=== PATIENT | female | born 1935 | race Caucasian/White ===

== ENCOUNTER 2018-04-27 17:21 | Inpatient (IN) | payer MEDICARE ==
[~2018-04-27] VITALS: Ht 167.6 cm; Wt 71.5 kg
[~2018-04-27 17:21] MED LIST: ACIDOPHILUS 17175 MG PO; ALDACTONE50 MG PO; ASPIRIN EC81 MG PO; BISOPROLOL FUMAR5 MG PO; CALCIUM CARB 51 EACH PO; CHEWABLE-VITE1 EAC1 PO; DEMADEX20 MG PO; FEOSOL325 MG PO; IPRAT-ALBUT 0.5-3 ML INH; ISOSORBIDE MONO60 MG PO; LIPITOR80 MG PO; NEURONTIN300 MG PO; PLAVIX75 MG PO; PROZAC20 MG PO; QVAR REDIHALE10.6 G1 INH; VITAMIN C500 M1 PO; VITAMIN D-32000 UNIT PO; ZYLOPRIM100 MG PO
[2018-04-27] MEDS ORDERED: ACIDOPHILUS 17175 MG PO (17:31)
[2018-04-27] MEDS ORDERED: BISOPROLOL FUMAR5 MG PO (17:33)
[2018-04-27] MEDS ORDERED: IPRATROPIU0.2 MG/1 M INH (17:34)
[2018-04-27] MEDS ORDERED: MIRTAZAPINE15 MG PO (17:35)
--- NOTE | 2018-04-27 18:27 | EKG ---
[facility] [address] 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
--- NOTE | 2018-04-27 21:00 | NUR ---
PT ARRIVES TO FLOOR FROM ER ON [facility] WITH 2 PERSON ASSIST TO HOSPITAL BED. PT ALERT AND ORIENTED TO PERSON AND PLACE. ASSESSMENT PERFORMED AND PT GIVEN FRESH ICE WATER. CALL LIGHT IN REACH AND NO NEEDS VOICED. PT DENIES HAVING PAIN OR SOB AT THIS TIME.
--- NOTE | 2018-04-27 21:33 | NUR ---
JOSE, RN NOTIFIED DR FOX OF CRITICAL LAB VAULE: CALCIUM. NO NEW ORDERS; CONTACTED [facility] STAFF FOR MORE INFOR RELATED TO PT. PT USES CPAP MACHINE FOR SLEEP APNEA, GENERALLY AMBULATES WITH FWW, FELL LAST NIGHT USING THE BATHROOM, AND HASN'T WALKED TODAY, GENERALLY TOLIETS SELF, FEEDS SELF, MOVED INTO [facility] END OF FEBRUARY, FIRST OF MARCH PER "LARRY", STAFF MEMBER AT [facility]. EDUCATED PT ABOUT THE CALL LIGHT, PT HAD NO NEEDS, AND WAS MOSTLY SLEEPY UPON ADMISSION AT 2026
--- NOTE | 2018-04-27 23:01 | NUR ---
PT ASSISTED UP TO BSC WITH 2PERSON ASSIST. PT ASSITED BACK IN TO BED AND PT ASSISTED INTO POSITION OF COMFORT. CALL LIGHT NAD H20 IN REACH.
--- NOTE | 2018-04-28 00:44 | NUR ---
PT RESTING SUPINE, RESPIRATIONS UNLABORED AT 18. CALL LIGHT AND H20 IN REACH. PT APPEARS TO BE SLEEPING COMFORTABLY.
--- NOTE | 2018-04-28 03:46 | NUR ---
pt resting supine in bed, [id number], pt appears to be sleeping comfortably. light/h20 in reach.
--- NOTE | 2018-04-28 05:04 | NUR ---
PT WAS ADMITTED TO MED/SURG FROM THE ER FOR ABNORMAL LAB VALUES AND WEAKNESS THAT CAME TO LIGHT AT HER APPOINTMENT WITH HER SUPPLY COORDINATOR. PT IS CURRENTLY A RESIDENT AT [facility]. PT IS ALERT TO PERSON AND PLACE THOUGH SUFFERS FROM [place]. PER STAFF AT [facility] PT WAS AMBULATING AT FACILITY WITH 2PA AND USE OF A FWW. HERE PT WAS ABLE TO PIVOT FROM [facility] TO BSC WITH A 2PA. PT HAS GENERALIZED WEAKNESS AND HAS HAD AN ELEVATED CALCIUM OF 13.6 AT 1750 AND HAS COME DOWN TO 12.7 AT 2159, SODIUM ALSO LOW AT 126. PT RECEIVED BOLUS' AND IS CURRENTLY RECEIVEING CONTINOUS LR MAINTENANCE FLUIDS TO 20GA IV TO LEFT HAND. PT ON REGULAR DIET AND HAS BEEN VOIDING QS CLEAR YELLOW URINE.
--- NOTE | 2018-04-28 09:34 | NUR ---
PT UP IN BED EATING BREAKFAST, NO DISTRESS, SATS STABLE, PT COMPLAINS OF MINIMAL SOB, LUNGS RHONCOROUS TO POSTERIOR LUNG PRECIADO, NOTIFIED PROVDIER, ADVISED TO D/C MAINTENANCE FLUIDS, SALINE LOCKED. PT HAD A BREATHING TREATMENT IS WORKING WITH PT. PT ABLE TO SWALLOW PILLS WITHOUT DIFFICULTY. WILL CONTINUE TO MONITOR.
--- NOTE | 2018-04-28 13:56 | NUR ---
PATIENT UP TO BSC 2 PERSON ASSIST. PATIENT BACK TO CHAIR 2 PERSON ASSIST. FAMILY BEDSIDE. CALL LIGHT IN REACH. NO FURTHER NEEDS AT THIS TIME.
--- NOTE | 2018-04-28 14:09 | NUR ---
PT APPEARS TO BE ALERT, ORIENTED AND SUPPORTED BY HER SISTER AND DAUGHTER VARINDER. PT STATED THAT SHE IS FEELING MUCH BETTER THAN LAST NIGHT. PLEASANT VISIT, PT REQUESTED PRAYER, WILL FOLLOW NEEDED
--- NOTE | 2018-04-28 16:13 | NUR ---
ORDER RECEIVED FOR WOUND CONSULT. PATIENT IS NOTED TO HAVE NON-ADHERENT DRESSING SECURED WITH COBAN ON FOREARMS, BILATERALLY. PATIENT'S SISTER REPORTS SHE FELL AT HOME WITH RESULTANT SKIN TEARS. SKIN TEARS APPEAR MOSTLY SCABBED AND DRY. GENTLY CLEANED W/WOUND CLEANSER AND GAUZE AND MEDIHONEY HYDROGEL COLLOIDAL DRESSING IS APPLIED TO ALL 3 WOUNDS (2 ON RIGHT ARM AND 1 ON LEFT ARM). LEFT GLUTEUS WOUND IS NOTED TO HAVE A 3 X [address] W/SMALL AMOUNT OF BLOODY DRAINAGE NOTED TO DRESSING. DRESSING IS CAREFULLY REMOVED AND A SKIN TEAR IS NOTED UNDER THE DRESSING MEDIAL AND SUPERIOR TO THE STAGE II PRESSURE ULCER. THE SKIN TEAR APPEARS BRIGHT RED. THE PRESSURE ULCER APPEARS PINK. DRESSING CHANGE DONE IN ACCORDANCE W/ORDER AND PATIENT TOLERATES THAT WELL. NEXT DRESSING CHANGE DUE TUESDAY 05/01. RIGHT GLUTEUS NON-BLANCHABLE, STAGE I PRESSURE AREA IS NOTED TO BE 4 CM LONG X 3 CM WIDE. NO DRESSING IS APPLIED TO THIS AREA @ THIS TIME; HOWEVER, PRESSURE RELIEF IS RECOMMENDED TO PREVENT FURTHER BREAKDOWN. PATIENT AND HER SISTER VERBALIZE UNDERSTANDING OF WOUND PLAN OF CARE. VERBAL REPORT GIVEN TO ALLEGRA PRUITT AND HER QUESTIONS ARE ANSWERED.
[2018-04-28] MEDS ORDERED: TYLENOL EXTRA500 MG PO (17:50)
[2018-04-28] MEDS ORDERED: ALAWAY10 ML OPTH (17:51)
[2018-04-28] MEDS ORDERED: COLACE100 MG PO (17:53)
[2018-04-28] MEDS ORDERED: BISACODYL5 MG PO (17:53)
[2018-04-28] MEDS ORDERED: ZOFRAN4 MG PO (17:54)
[2018-04-28] MEDS ORDERED: ENEMA READY TO133 ML PR (17:56)
[2018-04-28] MEDS ORDERED: VENTOLIN HFA18 GM INH (17:56)
--- NOTE | 2018-04-28 17:57 | NUR ---
MED REC COMPLETE
--- NOTE | 2018-04-28 18:34 | NUR ---
PT UP TO CHAIR AND RETURNED TO BED FOR ASSESSMENT, PILLOWS PLACED FOR COMFORT AND TO RELIEVE PRESSURE ULCER. PT HAS BILATERAL CRACKLES TO BASES, SATS STABLE. PT HAS NO DISTRESS AND IS RESTING COMFORTABLY, SISTER AT BEDSIDE. DRESSINGS APPLIED BY WOUND RN WITH THIS RN ASSISTING.
--- NOTE | 2018-04-28 18:35 | NUR ---
PT RESTING AT BEDSIDE, NO CHANGES IN CONDITION. TOLERATED DIET TODAY. SALINE LOCKED SINCE THIS AM DUE TO PROVIDER ORDER. WILL CONTINUE TO MONITOR.
--- NOTE | 2018-04-28 19:30 | NUR ---
PATIENT UP WITH 2 PERSON ASSIST TO THE BEDSIDE COMMODE AND AND VOIDED 350MLS.
--- NOTE | 2018-04-28 20:00 | NUR ---
PATIENT UP AGAIN WITH 2 PERSON ASSIST AND WALKER TO THE RECLINER AND WANTS TO SIT UP IN THE RECLINER FOR AWHILE. LEFT HAND IV REINFORCED WITH TAPE AND IT FLUSHES WELL WITH SALINE.
--- NOTE | 2018-04-28 20:55 | NUR ---
ROUNDED CHARGE. PATIENT IS RESTING IN RECLINER. CHAIR ALARM IN PLACE FOR SAFETY. PATIENT DENIES ANY COMMENTS, QUESTIONS, OR CONCERNS. CALL LIGHT IN REACH.
--- NOTE | 2018-04-28 22:39 | NUR ---
PATIENT CONTINUES TO SIT UP IN THE RECLINER, SHE DID NOT WANT TO GO TO BED YET. O2 SATS 94% ON ROOM AIR AND HR IS 66 ON THE TELE. RESPIRATIONS 16 AND REGULAR, EYES CLOSED AND PATIENT SEEMS TO BE RESTING COMFORTABLY.
--- NOTE | 2018-04-28 22:42 | NUR ---
V/S AND I&O TAKEN AND CHARTED. RN JENNIFER AND I HELPED PATIENT USE THE COMMODE. PATIENT WANTS TO BE UP IN THE CAHIR. CHAIR ALARM ON. BEDSIDE TABLE AND CALL LIGHT WITHIN REACH.
--- NOTE | 2018-04-28 23:30 | NUR ---
PATIENT HAS FINALLY DECIDED TO GO TO BED AND WITH A WALKER AND 2 PERSON ASSIST PATIENT WENT TO THE BATHROOM AND THEN AMBULATED BACK AND GOT INTO BED. PATIENT RESTING AT THIS TIME RESPIRATIONS REGULAR AND EVEN. HR=66 ON TELE AND SATS 92% ON ROOM AIR.
--- NOTE | 2018-04-28 23:34 | NUR ---
ALLEGRA RODRIGUEZ AND I HELPED PATIENT FROM BATHROOM TO BED USING WALKER. SCD, BED ALARM ON. BEDSIDE TABLE AND CALL LIGHT WITHIN REACH. NO OTHER NEEDS AT THIS TIME.
--- NOTE | 2018-04-29 02:10 | NUR ---
PATIENT IS CURRENTLY RESTING QUIETLY IN THE RECLINER IN HER ROOM. SHE SEEMS TO BE MORE COMFORTABLE THERE. HR IS 70 ON TELE AND HER O2 SATS ARE 92% ON ROOM AIR.
--- NOTE | 2018-04-29 03:11 | NUR ---
PATIENT CONTINUES TO SIT IN HER RECLINER RESTING QUIETLY, SATS 95% ON ROOM AIR AND HEART RATE OF 68.
--- NOTE | 2018-04-29 06:35 | NUR ---
PATIENT HAS BEEN UP AND DOWN FROM BED TO CHAIR MOST OF THE NIGHT USING THE COMMODE IN BETWEEN. IV IS FLUSHING WELL. PATIENT HAS BOWEL TONES AND STILL HAS CRACKLES IN THE BILAT BASES. TELE STILL RUNNING AT A RATE OF 60-70'S WITH A 1 DEGREE AV BBB PER CCU.
--- NOTE | 2018-04-29 06:47 | NUR ---
CALLED ABOUT HAVING TO RESCHEDULE THE PARATHYROID HORMONE PEPTIDE TEST FOR 1000 AM TODAY SINCE THAT IS WHEN WE ARE ABLE TO GET THE TUBES FROM THE WAREHOUSE COULD GET HERE. SAID THAT WOULD BE FINE.
--- NOTE | 2018-04-29 08:00 | NUR ---
WALKED WITH PATIENT FROM BATHROOM TO HER CHAIR AND SET HER UP TO EAT HER BREAKFAST.
--- NOTE | 2018-04-29 08:11 | NUR ---
PT ASSISTED BACK TO HER CHAIR AT THIS TIME FOR BREAKFAST FROM THE BATHROOM WHERE SHE HAD A LARGE, FORMED BM. PT HAS NO PAIN, IS A/O X4, PLEASANT , CALM AND COOPERATIVE. MEDS AND ASSESSMENT COMPLETE. CHAIR ALARM ON, FALL PRECAUTIONS IN PLACE. CALL LIGHT AND BELONGINGS WITHIN REACH. WILL CONTINUE TO MONITOR.
--- NOTE | 2018-04-29 09:32 | NUR ---
PT SITTING UP IN CHAIR COMFORTABLY WITH NO C/O PAIN. NO QUESTIONS OR CONCERNS. APPEARS COMFORTABLE. CALL LIGHT AND BELONGINGS WITHIN REACH. CHAIR ALARM ON AND FALL PRECAUTIONS IN PLACE. WILL CONTINUE TO MONITOR.
--- NOTE | 2018-04-29 11:15 | NUR ---
PT BACK IN CHAIR AT THIS TIME AFTER WORKING WITH PT, WELL THIS RN ASSISTING PT TO AND FROM TOILET AFTER HER THERAPY SESSION. PT HAD X1 URRINE OCCURRENCE (MISSED THE HAT). I PLACED A NEW DRG ON OPEN SORE ON BOTTOM SINCE PREVIOUS ONE WAS FALLING OFF; DATED AND TIMED THE DRG; CHANGE PRN OR Q3 DAYS. PT BACK IN CHAIR WITH CHAIR ALARM ON AND DAUGHTER AT HER SIDE. PT HAS NO C/O PAIN BUT STATES THAT SHE "FEELS WEAK AND TIRED" TODAY. PT HAS AMBULATED NUMEROUS TIMES THIS MORNING IN HER ROOM TO AND FROM CHAIR/TOILET, WELL WALKING WITH PT. EDUCATION PROVIDED ON ACTIVITY. PT REQUESTS TIME TO REST. FALL PRECAUTIONS IN PLACE. CALL LIGHT AND BELONGINGS WITHIN REACH; WILL CONTINUE TO MONITOR.
--- NOTE | 2018-04-29 13:03 | NUR ---
PT SITTING IN CHAIR EATING LUNCH. PT MENTIONED THAT TODAY HAS NOT BEEN THE BEST OF DAYS. FAMILY MENTIONED THAT SHE ATE HALF OF HER TUNA SANDWICH AND SOME OF HER SOUP THOUGH. PT STATED THAT SHE DID'T HAVE MUCH OF AN APPETITE. PT ALSO STATED THAT SHE DIDN'T SLEEP WELL, BUT HAS NO PAIN. PT REQUESTED PRAYER, WILL FOLLOW NEEDED
--- NOTE | 2018-04-29 13:30 | NUR ---
PT STILL SITTING UP IN CHAIR WITH 2 VISITORS IN THE ROOM. NO C/O PAIN OR ANY REQUESTS/CONCERNS. STATES THAT SHE STILL JUST FEELS TIRED. EDUCATION GIVEN ON IMPORTANCE OF REPOSITIONING, EVEN WHEN SITTING UP IN HER CHAIR. CALL LIGHT AND BELONGINGS WITHIN REACH. CHAIR ALARM ON/FALL PRECAUTIONS IN PLACE. WILL CONTINUE TO MONITOR.
--- NOTE | 2018-04-29 14:50 | NUR ---
PT ASSISTED BACK AT BED AFTER HAVING X1 URINE OCCURRENCE IN TOILET; PT HAS FALLEN ASLEEP AND IS NAPPING COMFORTABLY WITH 2 FAMILY MEMBERS AT BEDSIDE; SHE HAD NO C/O PAIN, IS A/O X4. NO QUESTIONS OR CONCERNS. ASSESSMENT COMPLETED. CALL LIGHT AND BELONGINGS WITHIN REACH. BED ALARM ON AND FALL PREVENTION PRECAUTIONS IN PLACE. SCD PUT ON. WILL CONTINUE TO MONITOR.
--- NOTE | 2018-04-29 18:18 | NUR ---
PT VS AND CONDITION STABLE TODAY ON 04/29/18 DAY SHIFT. PT PLEASANT, CALM AND COOPERATIVE WITH NO C/O PAIN, NO N/V, NO CONFUSION. PT STATED THIS AM THAT SHE FEELS WORSE TODAY COMPARED TO YESTERDAY, THAT SHE FEELS "MORE TIRED AND MORE WEAK." PT HAD VERY LARGE BM THIS MORNING, AND ADEQUATE URINE OUTPUT THROUGHOUT THE SHIFT. FREQUENT REPOSITIONING FOR PT'S BOTTOM COMPLETED THROUGHOUT SHIFT; PT NEEDS REINFORCEMENT BECAUSE SHE TENDS TO KEEP GOING BACK TO SUPINE POSITION. DRG ON BUTTOCKS CHANGED TODAY AND REMAINS C/D/I AT THIS TIME. PT HAS NO CURRENT QUESTIONS OR CONCERNS AT THIS TIME. EDUCATION COMPLETED THROUGHOUT SHIFT. CALL LIGHT AND BELONGINGS WITHIN REACH, UP IN CHAIR AT THIS TIME WITH CHAIR ALARM ON. WILL CONTINUE TO MONITOR.
--- NOTE | 2018-04-29 19:31 | NUR ---
PATIENT REFUSED SHOWER TODAY.
--- NOTE | 2018-04-29 19:40 | NUR ---
CHARGE NURSE ROUNDING NOTE: IN CHAIR, C/O ABD DISTRESS, RT IN ROOM, PT GETTING NEBS.PRIMARY RN IN ROOM
--- NOTE | 2018-04-29 19:58 | NUR ---
PATIENT C/O 05/17 GENERAL BODY AHES. PATIENT HAS NO FEVER, 97.2F TEMPORAL. PATIENT JUST FINISHED A BREATHNG TREATMENT. EXPIRATORY WHEEZES IN THE BILATRAL BASES WITH SCATTERED BILATERAL FINE CRACKLES. PATIENT UPPER LUNG SOUNDS DEMINISHED BUT CLEAR. BOWEL TONES X4 ACTIVE. 650MG PO TYLEOL GIVEN, ALONG WITH REMERON AND HER OTHER EVENING MEDS WHICH SHE TOOK JUST FINE.
--- NOTE | 2018-04-29 22:00 | NUR ---
WAS CONTACTED PATIENT'S PAIN HAS NOT HAD ANY RELIEF FROM REMERON OR TYLENOL AND 5MG OXCODONE WAS GIVEN PO. PATIENT SATS ARE STILL IN THE 90'S AND PULSES IN THE 80'S.
--- NOTE | 2018-04-30 | NUR ---
PATIENT HAS BEEN SLEEPING SINCE HER OXYCODONE WAS GIVEN AND SEEMS TO BE FAIRLY COMFORTABLE. O2 SATS, RESPIRATIONS, AND PULSE ARE WITHIN NORMAL LIMITS.
--- NOTE | 2018-04-30 00:28 | NUR ---
HELPED PT TO THE BATHROOM AND BACK TO BED WITH HER FWW AND RN JENNIFER'S HELP. CHANGED ATTEND SATURATED WITH URINE. SCD'S AND BED ALARM ON. FRESH WATER GIVEN. BEDSIDE TABLE AND CALL LIGHT IN REACH.
--- NOTE | 2018-04-30 00:56 | NUR ---
PATIENT HAS BEEN UP TO THE RESTROOM WITH [employer] LEASING INFORMATION CLERK,BUT IS BACK TO SLEEP AGAIN AN SEEMS COMFORTABLE, WITH PULSE, SATS, AND RESPIRATIONS REGULAR AND EVEN WITH EYES CLOSED.
--- NOTE | 2018-04-30 02:56 | NUR ---
PATIENT CONTINUES TO SLEEP QUIETLY, EYES CLOSED, RESPIRATIONS EVEN AND REGULAR, O2 SATS 92%, RESPIRATIONS 18, HR=80 ON TELE.
--- NOTE | 2018-04-30 05:38 | NUR ---
VITALS AND I&OS DONE AND CHARTED. DAILY WEIGHT DONE AND CHARTED WELL. HELPED PT TO THE BATHROOM AND BACK TO THE CHAIR WITH HER FWW AND RN JENNIFER. BEDSIDE TABLE AND CALL LIGHT WITHIN REACH. PT NEEDS NOTHING ELSE AT THSI TIME.
--- NOTE | 2018-04-30 08:40 | NUR ---
PT PLEASANT, CALM AND COOPERATIVE THIS MORNING SHE SITS UP IN HER CHAIR EATING BREAKFAST. PT HAS NO C/O PAIN. PT A/O TO PERSON AND TIME BUT DISORIENTED TO PLACE AND SITUATION. PT REQUIRES REORIENTATION AND REMINDERS ON SAFETY, FALL PREVENTION AND PLAN OF CARE. LUNG SOUNDS HAVE GREATLY IMPROVED SINCE YESTERDAY MORNING. DIMINISHED CRACKLES IN BILATERAL BASES BUT CLEAR IN BILTERAL UPPER LOBES. PT HAS NO QUESTIONS OR CONCERNS AT THIS TIME. MEDS GIVEN AND ASSESSMENT COMPLETED. EDUCATION COMPLETED WITH PT. CHAIR ALARM ON, FALL PRECAUTIONS IN PLACE, CALL LIGHT AND BELONGINGS WITHIN REACH. WILL CONTINUE TO MONITOR.
--- NOTE | 2018-04-30 10:30 | NUR ---
OCCUPATIONAL THERAPY GAVE PATIENT A SHOWER. THAN AFTER SHOWER PATIENT WANTED TO GO BACK TO BED.
--- NOTE | 2018-04-30 10:40 | NUR ---
WATCHED PT SHE AMBULATED BACK TO HER BED FROM THE SHOWER WITH OT. PT STILL CONFUSED AND FORGETFUL BUT SHE IS COMPLIANT AND COOPERATIVE. WALKER USED. PT STILL WEAK ON HER FEET BUT ABLE TO AMBULATE TO BED. SHE IS NOW IN BED WITH BED ALARM AND FALL PRECAUTIONS IN PLACE. NO C/O PAIN. CALL LIGHT AND BELONGINGS WITHIN REACH. WILL CONTINUE TO MONITOR.
--- NOTE | 2018-04-30 12:10 | NUR ---
THIS RN ASSISTED PT TO BATHROOM WITH X1 ASSIST AND WALKER FROM HER BED WHERE SHE WAS NAPPING COMFORTABLY. NO C/O PAIN AT THIS TIME. URINATED 200 CC. ASSISTED PT TO CHAIR FROM BATHROOM WHERE SHE IS CURRENTLY SITTING COMFORTABLY EATING LUNCH. CHAIR ALARM ON AND FALL PRECAUTIONS IN PLACE. CALL LIGHT WITHIN REACH. WILL CONTINUE TO MONITOR.
--- NOTE | 2018-04-30 13:15 | NUR ---
PATIENT RESTING IN CHAIR. PATIENT STATING DOING WELL. ONE TIME DOSE OF LASIX GIVEN.
--- NOTE | 2018-04-30 14:50 | NUR ---
PT RESTING IN CHAIR WITH NO C/O PAIN; PILLOW SUPPORT ON HER BOTTOM AT THIS TIME SINCE SHE WAS REFUSING USE OF THE DONUT FOR HER COCCYX. STILL FORGETFUL BUT REORIENTS EASILY. CHANGED DRESSING ON RIGHT ARM SKIN TEARS WITH NO COMPLICATIONS. NO CURRENT QUESTIONS OR CONCERNS. CHAIR ALARM IN PLACE. CALL LIGHT WITHIN REACH. FALL PRECAUTIONS IN PLACE. WILL CONTINUE TO MONITOR.
--- NOTE | 2018-04-30 14:59 | NUR ---
PATIENT WAS UP IN HER CHAIR FOR LUNCH.
--- NOTE | 2018-04-30 18:18 | NUR ---
PT RESTING IN BED AT THIS TIME WITH DAUGHTER AT BEDSIDE. PT HAS NO C/O PAIN. SCD IN PLACE. PT HAS BEEN PLEASANT, CALM AND COOPERATIVE THROUGHOUT THE SHIFT. SHE HAS HAD NO QUESTIONS OR CONCERNS. SHE HAS BEEN MORE CONFUSED AND FORGETFUL COMPARED TO YESTERDAY WHEN I WAS HER RN. I SPOKE TO DR. MULLINS AT THIS TIME VIA TELEPHONE TO INFORM HIM THAT HER URINE IS CLOUDY AND ODOROUS AT THIS TIME, COMPARED TO YESTERDAY'S URINE WHICH WAS CLEAR AND WITHOUT ODOR. I SPOKE TO DAUGHTER IN REGARDS TO BRINGING PT'S HOME CPAP FOR PT TO USE AT NIGHT SINCE PER RT, PT REFUSED HOSPITAL'S [facility]ACH[facility] 2 NIGHTS AGO. 02 SATURATIONS ADEQUATE BUT THEY CAN BRING IF IT MAKES PT COMFORTABLE. CALL LIGHT AND BELONGINGS WITHIN REACH, BED LOCKED WITH ALARM ON AND FALL PRECAUTIONS IN PLACE. WILL CONTINUE TO MONITOR AND COLLECT URINE PER DR. MULLINS NEXT TIME SHE IS NEEDING TO VOID.
--- NOTE | 2018-04-30 20:34 | NUR ---
VITALS DONE AND CHARTED. PT WAS SLEEPING WHEN I TOOK THEM.
--- NOTE | 2018-04-30 21:09 | NUR ---
PATIENT RESTIG IN HER LEFT SIDE, BUT AYS SHE IS HAVING 7/10 ABD AND BILAT LE PAIN AND WAS GIVEN 5 MG OF OXYCODE. SCD'D ON AND PATIENT'S VS HAVE BEEN STABLE.
--- NOTE | 2018-04-30 21:21 | NUR ---
ROUNDED CHARE. PATIENT IS RESTING IN BED. PATIENT DENIES ANY COMMNENTS, QUESTIONS, OR CONCERNS AT THIS TIME. CALL LIGHT IN REACH. BED ALARM ON FOR SAFETY.
--- NOTE | 2018-04-30 21:41 | NUR ---
HELPED PT TO THE BATHROOM AND BACK TO BED WITH HER FWW. SCD'S AND HEEL PROTECTORS PUT BACK ON. BEDSIDE TABLE AND CALL LIGHT WITHIN REACH. PT NEEDS NOTHING ELSE AT THIS TIME.
--- NOTE | 2018-04-30 23:15 | NUR ---
CHECKED ON PATIENT AND SHE IS NOT FEELING ANY PAIN AT THIS TIME. SATS 93% ON RA AND PATIENT IS READY TO WEAR HER CPAP HER FAMILY BROUGHT IN SO THIS WAS PUT ON AND VERIFIED IT WAS WORKING AND PATIENT RESTING QUIETLY NOW.
--- NOTE | 2018-05-01 00:03 | NUR ---
PATIENT STILL RESTING QUIETLY ON HER RT SIDE WEARING HER CPAP, RESPIRATIONS REGULAR AND EVEN AND CALL LIGHT IN REACH.
--- NOTE | 2018-05-01 06:19 | NUR ---
PATIENT HAS SLEPT ALL NIHGT AFTER 2300. SHE HAD HER EVENING MEDS AND REQUESTED AND OXYCODONE FOR 7/10 PAIN AND THEN HAS SLEPT WITH HER CPAP ON THE REST OF THE NIGHT ECEPT FOR GETING UP TO VOID ONCE. GOING IN TO GET PATIENT'S AILY WEIGHT AND COLLECT A URINE SAMPLE FOR THE LAB. PATIENT HAVING NO PAIN AT THIS TIME, BUT DID HAVE SOME INCONTINENCE IN HER ATTENDS WHEN SHE GOT UP DURING THE NIGHT. LEFT HAND IVSTILL FLUSHES WELL.
--- NOTE | 2018-05-01 06:54 | NUR ---
VITALS AND I&OS DONE AND CHARTED. DAILY WEIGHT DONE AND CHARTED WELL. CHANGED HER GOWN DUE TO HAVING SOME URINE ON IT. ALLEGRA RODRIGUEZ COLLECTED URINE SAMPLE AND SENT OFF TO LAB. BEDSIDE TABLE AND CALL LIGHT WITHIN REACH. FRESH WATER GIVEN.
--- NOTE | 2018-05-01 08:00 | NUR ---
PT PLEASANT, CALM AND COOPERATIVE BUT APPEARS TO BE IN A SAD MOOD. SHE STATES SHE HAS NO PAIN ANYWHERE, AND WHEN ASKED WHAT'S MAKING HER FEEL SAD SHE WASN'T ABLE TO ANSWER ME, STATING "I JUST FEEL WORSE TODAY." EMOTIONAL SUPPORT GIVEN. PT UP IN CHAIR WITH NO QUESTIONS OR CONCERNS. CALL LIGHT AND BELONGINGS WITHIN REACH. ASSESSMENT COMPLETED. CHAIR ALARM AND FALL PRECAUTIONS IN PLACE. WILL CONTINUE TO MONITOR.
--- NOTE | 2018-05-01 09:31 | NUR ---
pt sittin up in chair sipping on water. pt has no complaints at this time. call light within reach.
--- NOTE | 2018-05-01 11:17 | NUR ---
pt showered with help from nicole Arrieta and nicole Lira. lotion applied to pt. pt teeth brushed by corporation lawyer. call light within reach. no further needs from pt at this time.
--- NOTE | 2018-05-01 11:20 | NUR ---
PT UP IN SHOWER WITH HELP OF 2 CNAS. I CHANGED HER DRG ON HER BUTTOCKS AT THIS TIME. DRG NOW C/D/I. THIS RN LEFT ROOM WHILE PT STILL BEING HELPED WITH PERSON INVESTIGATOR STAFF. WILL CONTINUE TO MONITOR.
--- NOTE | 2018-05-01 13:35 | NUR ---
PT ASSISTED TO BED FROM CHAIR AT THIS TIME; PT UNABLE TO RATE HER PAIN/ SAYS THAT SHE HAS NONE WHEN I ASK BUT ALL NONVERBAL CUES SHOW SHE'S HURTING. SEE PAIN ASSESSMENT IN MAR; TYLENOL GIVEN. 2 FAMILY MEMBERS AT BEDSIDE. EMOTIONAL SUPPORT GIVEN TO PT. WILL CONTINUE TO MONITOR.
--- NOTE | 2018-05-01 13:55 | NUR ---
pt is resting in [facility]. family here. pt has no needs at this time. call light within reach.
--- NOTE | 2018-05-01 14:48 | NUR ---
PT SLEEPING COMFORTABLY IN BED AT THIS TIME. FAMILY MEMBERS AT BEDSIDE SAY SHE HAS BEEN SLEEPING RESTFULLY AFTER TYLENOL DOSE. ASSESSMENT COMPLETED. NO QUESTIONS OR CONCERNS AT THIS TIME STATED BY VISITORS. BED ALARM ON, BED LOCKED IN LOWEST POSITION. CALL LIGHT AND BELONGINGS WITHIN REACH. WILL CONTINUE TO MONITOR.
--- NOTE | 2018-05-01 16:30 | NUR ---
NO C/O PAIN; PT VISITING WITH GUESTS. COMFORTABLE AND NO REQUESTS. CALL LIGHT WIHTIN REACH. WILL CONTINUE TO MONITOR.
--- NOTE | 2018-05-01 17:22 | NUR ---
pt is sitting up in chair. sister is helping her eat dinner. call light within reach. pt has no needs at this time.
--- NOTE | 2018-05-01 18:34 | NUR ---
VS AND CONDITION STABLE TODAY. CALM AND COOPERATIVE BUT DEPRESSED AND WITHDRAWN THROUGHOUT SHIFT. IV ABX STARTED AFTER CLOUDY MALODOROUS URINE SENT TO LAB THIS AM. FREQUENT VISITORS HELPED WITH PT'S DEPRESSION. DRG ON COCCYX CHANGED TODAY AFTER SHOWER AND AGAIN AFTER IT WAS ASSESSED THIS AFTERNOON BY DR. MULLINS. BM TODAY. SALINE LOCKED. UP IN CHAIR AT THIS TIME WITH ALARM ON AND VISITORS AT BEDSIDE. CALL LIGHT WITHIN REACH. WILL CONTINUE TO MONITOR.
--- NOTE | 2018-05-01 19:00 | NUR ---
SHIFT REPORT RECEIVED. PATIENT SLEEPING IN RECLINER. FAMILY IN ROOM PREPARING TO LEAVE. CHAIR ALARM ON. CALL LIGHT IN LAP.
--- NOTE | 2018-05-01 19:39 | NUR ---
HELPED PT TO THE BATHROOM AND BACK TO HER CHAIR WITH HER FWW. PUT CHAIR ALARM ON. BEDSIDE TABLE AND CALL LIGHT WITHIN REACH. TWO WARM BLANKETS GIVEN.
--- NOTE | 2018-05-01 21:10 | NUR ---
EVENING MEDS PROVIDED. PATIENT STILL SLEEPING IN BED, WOKE EASILY TO VOICE. ASSISTED PATIENT TO [facility], SHE DID NOT VOID. WOUNDS ON BUTTOCK COVERED WITH ALYVEN. PATIENT INTO BED. TURNED TO LEFT SIDE. HOME CPAP IN USE. PATIENT DENIES SOB, PAIN, OR NAUSEA. SHE IS VERY DROWSEY, BUT ORIENTED TO SELF AND PLACE. LUNG SOUNDS ARE CLEAR IN UPPER LOBES BILATERALLY, DIMINISHED IN LOWER LOBES WITH COARSE LUNG SOUNDS ON RLL. PATIENT DENIED FURTHER NEEDS. CALL LIGHT IN REACH. BED ALARM ON.
--- NOTE | 2018-05-01 22:52 | NUR ---
HELPED PT TO THE BATHROOM AND BACK TO BED WITH HER FWW. SCD'S PUT BACK ON. BED ALARM SET. PT NEEDS NOTHING ELSE AT THIS TIME.
--- NOTE | 2018-05-02 02:00 | NUR ---
PATIENT SLEEPING SOUNDLY. WOKE EASILY TO VOICE/TOUCH. PATIENT UP TO THE BATHROOM, 1PA W/FWW INTO THE BATHROOM. PATIENT TOLERATED WELL. ASSISTED BACK TO BED. DENIES PAIN. APPEARS SLIGHTLY SOB WHEN RETURNED TO BED. ASSISTED HER TO LAY ON LEFT SIDE. SCDS. BED ALARM ON. CALL LIGHT IN REACH. CPAP IN PLACE.
--- NOTE | 2018-05-02 04:15 | NUR ---
PATIENT SLEEPING SOUNDLY BUT CPAP HAS SIGNIFICANT AIR LEAK. RT UP TO ASSIST. REPOSITIONED. PATIENT REPORTS IT FEELS FINE. AIR LEAK REDUCED. NO NEEDS AT THIS TIME.
--- NOTE | 2018-05-02 05:18 | NUR ---
PATIENT SLEPT MOST OF THE SHIFT EXCEPT WHEN STAFF WOKE HER FOR CARES. PATIENT IS ORIENTED TO SLEF, EVENT, AND SURROUNDINGS BUT CONTINUES TO BE DROWSEY AND FORGETFUL. LUNG SOUND CLEAR, EXCEPT SOME CORSE IN RLL. SCHEDULED NEBS. TOLRATING ROOM AIR. NO NAUSEA OR PAIN. SCDS. ENCOURAGE ORAL INTAKE, POOR APPETITE. WOUNDS ON ARMS COVERED BY WOUND RN. BUTTOCK WOUNDS REDRESSED WITH ORDERED COLLEGEN & HYDROCOLLOID DRESSING. 1PA W/FWW. BED/CHAIR ALARM, PATIENT NEVER ATTEMPTED TO GET OUT OF BED AND ALSO DID NOT USE CALL LIGHT.
--- NOTE | 2018-05-02 07:00 | NUR ---
patient up to the bathroom. large bm. dressing on left buttock changed per wound consult orders. patient positioned for comfort. call light in reach. bed alarm on.
--- NOTE | 2018-05-02 08:20 | NUR ---
PT AWAKE, A/O X4 AND ALERT SITTING UP IN CHAIR EATING BREAKFAST AT THIS TIME. PT IS PLEASANT, CALM AND COOPERATIVE WITH NO C/O PAIN. 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 SHE STATES THAT SHE SLEPT WELL OVERNIGHT. ASSESSMENT COMPLETED AND SCHEDULED MEDS GIVEN. SALINE LOCKED. BM THIS MORNING. OCCASIONAL COUGH. CHAIR ALARM ON, CHAIR LOCKED, OTHER FALL PRECAUTIONS IN PLACE. CALL LIGHT WITHIN REACH. I WILL CONTINUE TO MONITOR.
--- NOTE | 2018-05-02 09:25 | NUR ---
pt is sitting up in chair. pt has no needs at this time. call light within reach.
--- NOTE | 2018-05-02 10:30 | NUR ---
PT UP IN CHAIR AT THIS TIME WITHOUT ANY C/O PAIN; PT IN ROOM ABOUT TO DO THERAPY SESSION WITH HER. WILL CONTINUE TO MONITOR.
--- NOTE | 2018-05-02 12:30 | NUR ---
PT SITTING UP IN CHAIR AT THIS TIME WITH VISITOR AT HER SIDE. PT IS SMILING, PLEASANT, ORIENTED. SHE HAS NO C/O PAIN. NO QUESTIONS OR CONCERNS. CALL LIGHT WITHIN REACH. CHAIR ALARM IN PLACE AND FALL PRECAUTIONS IN PLACE. WILL CONTINUE TO MONITOR.
--- NOTE | 2018-05-02 13:42 | NUR ---
pt resting in bed. daughter is here. pt has no needs at this time. call light within reach.
--- NOTE | 2018-05-02 14:45 | NUR ---
PT STILL SITTING UP IN CHAIR WITH DAUGHTER AT BEDSIDE. PT STILL STATES SHE'S COMFORTABLE WITH NO PAIN; FREQUENT REPOSITIONING IN CHAIR BEING COMPLETED. DONUT IN CHAIR TO RELIEVE COCCYX PRESSURE. NO QUESTIONS OR CONCERNS. ASSISTED PT WITH TV CHANNELS. CALL LIGHT WITHIN REACH. CHAIR ALARM IN PLACE. WILL CONTINUE TO MONITOR.
--- NOTE | 2018-05-02 18:44 | NUR ---
PT VS AND CONDITION STABLE TODAY ON 05/02/18 DAY SHIFT. PT WAS VERY PLEASANT, CALM, COOPERATIVE AND IN HIGH SPIRITS WITH NO C/O PAIN. UP IN CHAIR MOST OF SHIFT WITH Q2HR REPOSITION ON DONUT PILLOW. DRG ON BUTTOM IS C/D/I. RIGHT LUNG SOUNDS COURSE BUT LEFT IS CLEAR. SALINE LOCKED. ROOM AIR. PT BACK IN BED AT THIS TIME RESTING COMFORTABLY. MANY VISITORS THROUGHOUT THE DAY VISITING. NO CURRENT QUESTIONS OR CONCERNS. CALL LIGHT WITHIN REACH. BED ALARM ON WITH FALL PRECAUTIONS IN PLACE. WILL CONTINUE TO MONITOR.
--- NOTE | 2018-05-02 19:05 | NUR ---
SHIFT REPORT RECEIVED. PATIENT RESTING IN BED. CALL LIGHT IN REACH.
--- NOTE | 2018-05-02 19:54 | NUR ---
RT STARTED NEB TREATMENT. TREATMENT FINISHED AT THIS TIME. MASK REMOVED. PATIENT STATES THAT SHE IS "DOING ALRIGHT". NO NEEDS AT THIS TIME. CALL LIGHT IN HAND.
--- NOTE | 2018-05-02 21:03 | NUR ---
IN ROOM TO TAKE VS AND I&O. FRESH WATER IS AT BEDSIDE AND CALL LIGHT IS WITHIN REACH.
--- NOTE | 2018-05-02 22:00 | NUR ---
PATIENT CALLED TO USE TO BATHROOM. ASSISTED PATIENT OT THE BATHROOM, 1PA W/FWW. PATIENT TOLERATED WELL. DRESSING ON LEFT BUTTOCK APPEARS INTACT. PATIENT GIBBS TO BED. EVENING MEDS GIVEN. ASSESSMENT COMPLETED. LUNG SOUNDS ARE COARSE, DIMINISHED IN THE BASES. ABD IS SOFT, BOWEL SOUNDS ACTIVE. PATIENT DENIES PAIN. POSITIONED PATIENT ONTO RIGHT SIDE. HOME CPAP PLACED ON PATIENT. SHE DENIES OTHER NEEDS. MORE ALERT TONIGHT THAN PREVIOUS. OREIENTED X3, STILL UNCLEAR ABOUT HER REASON FOR BEING ADMITTED. EDUCATION PROVIDED. CALL LIGHT IN REACH.
--- NOTE | 2018-05-03 03:21 | NUR ---
PT SLEEPING IN BED. PT TOOK CPAP OFF WHILE SLEEPING. CPAP PLACED BACK ON PT TO HER LIKING. NO FURTHER REQUESTS AT THIS TIME. CALL LIGHT WITHIN REACH. SCD'S IN PLACE.
--- NOTE | 2018-05-03 04:00 | NUR ---
patient resting in bed. assisted to reposition her. cpcp in place. patient denies pain or toileting needs. call light in reach.
--- NOTE | 2018-05-03 05:27 | NUR ---
PATIENT SLEPT THROUGHOUT THE NIGHT. ORIENTED TO ALL EXCEPT EVENT OF ADMISSION. IMPROVED ENERGY LEVELS AND ORIENTATION FROM PREVIOUS SHIFT. 1PA W/FWW, DOES WELL. CPAP AT NIGHT. SKIN TEARS, COVERED WITH WOUND CONSULT ORDERED DRESSINGS. LEFT BUTTOCK WOUND COVERED WITH COLLIGEN AND HYDROCOLLOID PER ORDERS. IV SL. NO ORAL INTAKE THIS SHIFT, EXCEPT SIPS OF WATER. NO PAIN. URINE OUTPUT QS. PLAN TO DC TODAY.
--- NOTE | 2018-05-03 07:13 | NUR ---
PT SAT IN CHAIR, FAMILY IN . GAVE EMOTIONAL SUPPORT, PT RATHER STOIC IN HER DEMEANOR. EXTENDED A BLESSING, WILL FOLLOW NEEDED
--- NOTE | 2018-05-03 08:25 | NUR ---
FAXED UPDATED CHART NOTES INCLUDING PROG NOTES AND PT AND OR EVAL AND NOTES TO [facility] PER PT WISHES. RECIEVED FAX CONFIRMATION.
--- NOTE | 2018-05-03 08:49 | NUR ---
PT MARCUSCINED SHOWER BUT STATED THAT SHE WOULD DO A BEDBATH LATER.
--- NOTE | 2018-05-03 09:10 | NUR ---
PT SITTING UP AWAKE IN RECLINER. CHAIR ALARM IN PLACE. PT ALERT AND OREIENTED. DENIES PAIN OR OTHER CONCERNS. ATE ALL OF BREAKFAST THIS AM AND HAD A WHOLE ENSURE. LUNGS COURSE THROUGHOUT. PT DENIES DIFFICULTY BREATHING OR SOB, SATTING 94% ON RA. CALL LIGHT WITHIN REACH.
--- NOTE | 2018-05-03 09:12 | NUR ---
pt stated that she would shower around 11am.
[2018-05-03] MEDS ORDERED: CEPHALEXIN500 MG PO (10:05)
[2018-05-03] MEDS ORDERED: TORSEMIDE20 MG PO (10:07)
--- NOTE | 2018-05-03 10:28 | NUR ---
FAXED ORDERS AND PASRR TO [facility], RECIEVED FAX CONFIRMATION OF THIS.
--- NOTE | 2018-05-03 11:30 | NUR ---
PT WORKED WITH P.T. AND O.T. THIS AM, MARIUSZ WELL.
--- NOTE | 2018-05-03 13:15 | NUR ---
REPORT CALLED TO [facility].
--- NOTE | 2018-05-03 13:24 | NUR ---
PT DRESSED, SITTING IN CHAIR EATING LUNCH. PT IS ALERT, ORIENTED AND IN THE PROCESS OF TRANS. TO [facility] FOR REHAB. SPENT A MOMENT WITH PT AND DAUGHTER VARINDER. DISCUSSED MOVE TO [facility] AND ASKED IF THEY HAD ANY QUESTIONS. I ENCOURAGED THEM BOTH TO VIEW [facility] A TOOL TO GET STRONGER TO RETURN TO HER HOME AT [facility]. PT AND DAUGHTER BOTH SAID THEY UNDERSTOOD. PRAYED WITH BOTH, WILL FOLLOW NEEDED
[2018-05-03] MEDS ORDERED: QVAR REDIHALE10.6 G1 INH (15:04)
== END 2018-05-03 12:30 | disposition home or self-care (01) | DRG 641 ==
LOC: ED 17:21 → MS 17:22
PROVIDERS: ADMIT Student in an Organized Health Care Education/Training Program
DX: E83.52 Hypercalcemia (principal); I13.0 Hypertensive heart and chronic kidney disease with heart failure and stage 1 through stage 4 chronic kidney disease, or unspecified chronic kidney disease; N18.4 Chronic kidney disease, stage 4 (severe); I50.22 Chronic systolic (congestive) heart failure; N17.9 Acute kidney failure, unspecified; N39.0 Urinary tract infection, site not specified; E87.1 Hypo-osmolality and hyponatremia; E86.0 Dehydration; I25.10 Atherosclerotic heart disease of native coronary artery without angina pectoris; L89.152 Pressure ulcer of sacral region, stage 2; B96.20 Unspecified Escherichia coli [E. coli] as the cause of diseases classified elsewhere; J44.9 Chronic obstructive pulmonary disease, unspecified; J47.9 Bronchiectasis, uncomplicated; G47.33 Obstructive sleep apnea (adult) (pediatric); E79.0 Hyperuricemia without signs of inflammatory arthritis and tophaceous disease; F32.9 Major depressive disorder, single episode, unspecified; Z66 Do not resuscitate; Z85.72 Personal history of non-Hodgkin lymphomas; K59.00 Constipation, unspecified; R00.1 Bradycardia, unspecified; E78.5 Hyperlipidemia, unspecified; K21.9 Gastro-esophageal reflux disease without esophagitis
CPT/HCPCS: 36415; 73502; 73560; 80048; 80053; 80076; 81001; 81050; 82306; 82310; 82542; 82550; 82652; 83735; 83970; 84100; 84155; 84156; 84165; 84166; 85025; 87077; 87088; 87186; 93005; 93010; 94640; 94762; 96361; 96374; 97110; 97116; 97162; 97165; 97535; 99285; G8978; G8979; J0696; J1650; J2405; J7030; J7120